=== PATIENT | female | born 2000 | race Caucasian/White ===

== ENCOUNTER 2019-12-20 12:47 | Observation (INO) ==
[2019-12-20] MEDS ORDERED: ONDANSETRON INJ 2 MG/ML 2 ML VIAL IV STA (13:11)
[2019-12-20] MEDS ORDERED: SODIUM CHLORIDE 0.9% 1000ML 1,000 ML IV ONE (13:11)
--- NOTE | 2019-12-20 14:00 | Emergency Department Note ---
History of Present Illness General Chief Complaint: Abdominal Pain Stated Complaint: STOMACH PAIN, NAUSEA Source: patient Mode of arrival: ambulatory Limitations: no limitations History of Present Illness Provider Complaint: abdominal pain Onset (ago): 4 hour(s) Pain Consistency: constant Location: epigastric Radiation: suprapubic Migration to: no migration Severity: moderate Maximum Pain Intensity: 5 Current Pain Intensity: 5 Quality: + aching and + sharp Relieved By: + nothing Exacerbated By: + movement Associated Symptoms: + nausea, + chills and + anorexia; no vomiting, no diarrhea, no fever, no constipation, no dysuria, no hematochezia, no headache and no chest pain Treatments prior to arrival: none This 19 year old female patient presents to the ED today, ambulatory, complaining of epigastric pain and nausea which began approximately 4 hours prior to arrival. The patient states she has not vomited, and was able to eat breakfast this morning, but does report some decreased appetite. Last menstrual period was 2 and half weeks ago. She states the pain does seem to be radiating downward from the epigastrium to the lower abdomen. He denies any constipation, diarrhea, chest pain, dyspnea, or recent illness. She denies any fever. Patient has taken no medications for her symptoms. She denies history of similar symptoms in the past, but spoke with her brother who recently had appendicitis who states that he has presented in the same manner. Patient denies any flank pain. She denies any hematuria, dysuria, urinary frequency, urinary hesitancy. She denies any abnormal vaginal discharge or bleeding. She denies any pain with intercourse. Related Data Date of Last Menstrual Period: 12/03/19 Home Medications Home Medications Medication Instructions Recorded Confirmed Type drospirenone-ethinyl estradiol 1 tab PO PM 12/20/19 12/20/19 History [Brenda (27)] Allergies Allergy/AdvReac Type Severity Reaction Status Date / Time No Known Allergies Allergy Unverified 12/20/19 14:59 Past Med/Surg History Medical History No pertinent past medical history Surgical History H/O wisdom tooth extraction Social History Feels Safe at Home: Yes Smoking Status: Never smoker Review of Systems A total of 10 systems reviewed and were otherwise negative Physical Exam Vital Signs: Vital Signs - 24 hr 12/20/19 12:50 12/20/19 13:51 12/20/19 14:00 Temperature 36.7 C Temperature Source Oral Pulse Rate 95 H 85 Pulse Rate [Apical ] Pulse Rate [Right Finger] 82 Pulse Rate from Sp O2 Sensor 86 Pulse Rhythm [Apic al] Respiratory Rate 20 18 21 Respiratory Effort / Characteristics Non-Labored Sponta neous Respiratory Depth Normal Respiratory Patter n Regular Blood Pressure 148/87 H 126/79 Blood Pressure [Le ft Arm] 127/77 Blood Pressure Karon n 107 97 Blood Pressure Karon n [Left Arm] 93 Blood Pressure Pos ition [Left Arm] Pulse Oximetry 99 100 100 Oxygen Delivery Me thod Room Air Room Air Oxygen Flow Rate Sepsis Recent Feve r Within 48 Hours No Sepsis Action Take n by Nursing No Action Required 12/20/19 14:05 12/20/19 14:30 12/20/19 14:31 Temperature Temperature Source Pulse Rate 83 75 73 Pulse Rate [Apical ] Pulse Rate [Right Finger] Pulse Rate from Sp O2 Sensor 84 76 75 Pulse Rhythm [Apic al] Respiratory Rate 20 20 15 Respiratory Effort / Characteristics Respiratory Depth Respiratory Patter n Blood Pressure 140/64 Blood Pressure [Le ft Arm] Blood Pressure Karon n 79 Blood Pressure Karon n [Left Arm] Blood Pressure Pos ition [Left Arm] Pulse Oximetry 100 100 100 Oxygen Delivery Me thod Oxygen Flow Rate Sepsis Recent Feve r Within 48 Hours Sepsis Action Take n by Nursing 12/20/19 15:01 12/20/19 15:03 12/20/19 15:30 Temperature Temperature Source Pulse Rate 92 H 78 Pulse Rate [Apical ] Pulse Rate [Right Finger] Pulse Rate from Sp O2 Sensor 94 H 75 Pulse Rhythm [Apic al] Respiratory Rate 17 18 Respiratory Effort / Characteristics Respiratory Depth Respiratory Patter n Blood Pressure 117/72 120/80 116/59 L Blood Pressure [Le ft Arm] Blood Pressure Karon n 85 95 75 Blood Pressure Karon n [Left Arm] Blood Pressure Pos ition [Left Arm] Pulse Oximetry 100 100 Oxygen Delivery Me thod Oxygen Flow Rate Sepsis Recent Feve r Within 48 Hours Sepsis Action Take n by Nursing 12/20/19 15:31 12/20/19 15:45 12/20/19 16:00 Temperature Temperature Source Pulse Rate 80 77 85 Pulse Rate [Apical ] Pulse Rate [Right Finger] Pulse Rate from Sp O2 Sensor 84 79 85 Pulse Rhythm [Apic al] Respiratory Rate 18 19 22 Respiratory Effort / Characteristics Respiratory Depth Respiratory Patter n Blood Pressure 107/73 115/78 Blood Pressure [Le ft Arm] Blood Pressure Karon n 77 105 Blood Pressure Karon n [Left Arm] Blood Pressure Pos ition [Left Arm] Pulse Oximetry 100 100 100 Oxygen Delivery Me thod Oxygen Flow Rate Sepsis Recent Feve r Within 48 Hours Sepsis Action Take n by Nursing 12/20/19 16:01 12/20/19 17:26 12/20/19 17:27 Temperature Temperature Source Pulse Rate 80 Pulse Rate [Apical ] Pulse Rate [Right Finger] Pulse Rate from Sp O2 Sensor 81 Pulse Rhythm [Apic al] Respiratory Rate 25 H 16 Respiratory Effort / Characteristics Respiratory Depth Respiratory Patter n Blood Pressure Blood Pressure [Le ft Arm] 115/70 Blood Pressure Karon n Blood Pressure Karon n [Left Arm] 85 Blood Pressure Pos ition [Left Arm] Pulse Oximetry 100 100 Oxygen Delivery Me thod Nasal Cannula Oxygen Flow Rate Sepsis Recent Feve r Within 48 Hours Sepsis Action Take n by Nursing 12/20/19 18:52 12/20/19 19:00 Temperature 36.8 C Temperature Source Temporal Artery Sc an Pulse Rate Pulse Rate [Apical ] 66 63 Pulse Rate [Right Finger] Pulse Rate from Sp O2 Sensor Pulse Rhythm [Apic al] Regular Regular Respiratory Rate 15 21 Respiratory Effort / Characteristics Non-Labored Sponta neous Non-Labored Sponta neous Respiratory Depth Normal Normal Respiratory Patter n Regular Regular Blood Pressure Blood Pressure [Le ft Arm] 108/69 116/71 Blood Pressure Karon n Blood Pressure Karon n [Left Arm] 82 86 Blood Pressure Pos ition [Left Arm] Semi-fowlers Semi-fowlers Pulse Oximetry 100 100 Oxygen Delivery Me thod Oxymask Oxymask Oxygen Flow Rate 10 10 Sepsis Recent Feve r Within 48 Hours Sepsis Action Take n by Nursing Physical Exam: VITALS: Vitals are noted on the nurse's note and reviewed by myself. Vital signs stable. GENERAL: This is a 19-year-old white female, in no acute distress, nondiaphoretic, well-developed well-nourished. SKIN: The skin was without rashes, erythema, edema, or bruising. There is no tenting of the skin. Capillary refill less than 2 seconds. HEAD: Normocephalic atraumatic. EARS: External auditory canals clear, tympanic membranes pearly hair without erythema or effusion bilaterally. EYES: Pupils equal round and reactive to light and accommodation. Conjunctivae without injection, sclerae without icterus. Extraocular movements intact. NOSE: Patent, turbinates without inflammation or discharge. No sinus tenderness. MOUTH: Mucous membranes moist. Tonsils are not enlarged. Pharynx without erythema or exudate. Uvula midline. Airway patent. Tongue does not deviate. NECK: Supple without nuchal rigidity. No lymphadenopathy. HEART: Regular rate and rhythm without murmurs gallops or rubs. LUNGS: Clear to auscultation bilaterally without wheezes, rales or rhonchi. No retractions or accessory muscle use. ABDOMEN: Positive bowel sounds x 4. Normal tympanic percussion. Epigastric and suprapubic tenderness palpation. There is tenderness over McBurney's point. Abdomen is otherwise soft, without masses or organomegaly. Guarding with palpation of the lower abdomen. Positive rebound tenderness. MUSCULOSKELETAL: No muscle atrophy, erythema, or edema noted. Full range of motion without joint tenderness in all extremities. No tenderness to palpation. Normal gait. Strength 5/5 throughout. NEURO: Patient was alert and oriented to person place and time. No focal neurological deficits. Course Course The patient was seen and evaluated as above. IV access obtained, labs drawn. Patient medicated with IV fluids and Zofran. Imaging performed and reviewed by myself and radiologist as above. Labs reviewed by myself. I discussed the findings with the patient at bedside. She was offered analgesics and declined. I discussed the case with the general surgeon on-call, Dr. Lewis. She did agree to see and evaluate the patient. Administered Medications Fentanyl Citrate (Fentanyl Citrate) 25 mcg IV Q5M PRN PRN Reason: PACU Use Only-Pain Stop: 12/20/19 22:34 Last Admin: 12/20/19 19:25 Dose: 25 mcg Documented by: [id number] Ioversol (Optiray 320 100ml) 92 ml IV ONCE PRN PRN Reason: Interaction Checking Stop: 12/24/19 15:42 Last Admin: 12/20/19 15:43 Dose: 92 ml Documented by: [id number] Ondansetron HCl (Zofran) 4 mg IV ONCE PRN PRN Reason: PACU Use Only-Nausea/Vomiting Stop: 12/20/19 22:34 Last Admin: 12/20/19 19:26 Dose: 4 mg Documented by: [id number] Discontinued Medications Bupivacaine HCl (Marcaine 0.5% Mpf) Confirm Administered Dose 30 ml .ROUTE .STK- MED ONE Stop: 12/20/19 17:05 Last Admin: 12/20/19 18:27 Dose: 30 ml Documented by: [id number] Sodium Chloride (Nss 1000ml) 1,000 mls @ 999 mls/hr IV .Q1H1M ONE Stop: 12/20/19 14:11 Last Infusion: 12/20/19 15:22 Dose: 0 mls/hr Documented by: [id number] Admin: 12/20/19 14:07 Dose: 999 mls/hr Documented by: [id number] Cefoxitin Sodium (Mefoxin) 2,000 mg in 60 mls @ 100 mls/hr IV NOW STA Stop: 12/20/19 18:12 Last Admin: 12/20/19 18:10 Dose: 100 mls/hr Documented by: [id number] Ondansetron HCl (Zofran) 4 mg IV NOW STA Stop: 12/20/19 13:12 Last Admin: 12/20/19 14:08 Dose: 4 mg Documented by: [id number] Medical Decision Making Differential Diagnosis + peptic ulcer disease, + biliary pathology, + UTI, + obstruction, + mesenteric ischemia, + aortic pathology, + infections, + inflammatory bowel disease, + renal colic, + ectopic (female), + ovarian torsion (female), + tubo- ovarian abscesses (female), + pelvic inflammatory disease (female), + abdominal pain, + appendicitis, + calculus of kidney, + constipation, + diverticulitis, + endometriosis, + gastroenteritis, + pancreatitis and + small bowel obstruction Home Medications Current Medication List: was personally reviewed by me Laboratory Data Attestation: I reviewed the patient's lab results. No leukocytosis, anemia, thrombocytopenia. Renal, hepatic function, and electrolytes without significant abnormality. Coags normal. Lipase 106. Urinalysis negative for blood or evidence of infection. Urine test negative. Result diagrams: 12/20/19 13:48 12/20/19 13:48 Lab Results 02/12/0812/20/19 12/20/19 Range/Units 13:48 13:48 13:48 WBC 10.50 (4.8-10.8) K/uL RBC 4.30 (4.2-5.4) M/uL Hgb 11.5 L (12.0-16.0) g/dL Hct 35.4 L (37-47) % MCV 82.3 (80-100) fL MCH 26.7 (25-34) pg MCHC 32.5 (32-36) g/dL RDW Std Deviation 42.3 (36.4-46.3) fL RDW Coeff of Vaughn 14.1 (11.5-14.5) % Plt Count 295 (130-400) K/uL MPV 10.6 H (7.4-10.4) fL Immature Gran % (Auto) 0.1 % Neut % (Auto) 78.4 % Lymph % (Auto) 15.8 % [place] % (Auto) 5.0 % Eos % (Auto) 0.5 % Baso % (Auto) 0.2 % Immature Gran # (Auto) 0.01 (0.00-0.02) K/uL Neut # (Auto) 8.23 H (1.4-6.5) K/uL Lymph # (Auto) 1.66 (1.2-3.4) K/uL [place] # (Auto) 0.53 (0.11-0.59) K/uL Eos # (Auto) 0.05 (0-0.5) K/uL Baso # (Auto) 0.02 (0-0.2) K/uL PT 10.7 (9.0-12.0) Seconds INR 1.0 (0.9-1.1) APTT 25.1 (21.0-31.0) Seconds PTT Ratio 0.9 Sodium 139 (136-145) mmol/L Potassium 3.6 (3.5-5.1) mmol/L Chloride 109 H (98-107) mmol/L Carbon Dioxide 26 (21-32) mmol/L Anion Gap 4.0 (3-11) BUN 7 (7-18) mg/dl Creatinine 0.87 (0.6-1.2) mg/dl Est Cr Clr Drug Dosing 96.6 ml/min Est GFR ( Amer) 111.1 Est GFR (Non-Af Amer) 95.9 BUN/Creatinine Ratio 7.9 L (10-20) Glucose 125 H (70-99) mg/dl Calcium 9.5 (8.5-10.1) mg/dl Total Bilirubin 0.3 (0.2-1) mg/dl AST 34 (15-37) U/L ALT 20 (12-78) U/L Alkaline Phosphatase 59 (45-117) U/L Total Protein 7.8 (6.4-8.2) gm/dl Albumin 3.7 (3.4-5.0) gm/dl Globulin 4.1 H (2.5-4.0) gm/dl Albumin/Globulin Ratio 0.9 (0.9-2) Lipase 106 (73-393) U/L Urine Color Urine Appearance (Clear) Urine pH (4.5-7.5) Ur Specific [place] (1.000-1.030) Urine Protein (Negative) Urine Glucose (UA) (Negative) Urine Ketones (Negative) Urine Blood (Negative) Urine Nitrite (Negative) Urine Bilirubin (Negative) Urine Urobilinogen (Negative) Ur Leukocyte Esterase (Negative) Urine WBC (Auto) (0-5) /hpf Urine RBC (Auto) (0-4) /hpf U Hyaline Cast (Auto) (0-5) /lpf U Epithel Cells (Auto) (0-5) /lpf Urine Bacteria (Auto) (Negative) POC Ur Test (NEG) 12/20/19 12/20/19 Range/Units 13:49 13:49 WBC (4.8-10.8) K/uL RBC (4.2-5.4) M/uL Hgb (12.0-16.0) g/dL Hct (37-47) % MCV (80-100) fL MCH (25-34) pg MCHC (32-36) g/dL RDW Std Deviation (36.4-46.3) fL RDW Coeff of Vaughn (11.5-14.5) % Plt Count (130-400) K/uL MPV (7.4-10.4) fL Immature Gran % (Auto) % Neut % (Auto) % Lymph % (Auto) % [place] % (Auto) % Eos % (Auto) % Baso % (Auto) % Immature Gran # (Auto) (0.00-0.02) K/uL Neut # (Auto) (1.4-6.5) K/uL Lymph # (Auto) (1.2-3.4) K/uL [place] # (Auto) (0.11-0.59) K/uL Eos # (Auto) (0-0.5) K/uL Baso # (Auto) (0-0.2) K/uL PT (9.0-12.0) Seconds INR (0.9-1.1) APTT (21.0-31.0) Seconds PTT Ratio Sodium (136-145) mmol/L Potassium (3.5-5.1) mmol/L Chloride (98-107) mmol/L Carbon Dioxide (21-32) mmol/L Anion Gap (3-11) BUN (7-18) mg/dl Creatinine (0.6-1.2) mg/dl Est Cr Clr Drug Dosing ml/min Est GFR ( Amer) Est GFR (Non-Af Amer) BUN/Creatinine Ratio (10-20) Glucose (70-99) mg/dl Calcium (8.5-10.1) mg/dl Total Bilirubin (0.2-1) mg/dl AST (15-37) U/L ALT (12-78) U/L Alkaline Phosphatase (45-117) U/L Total Protein (6.4-8.2) gm/dl Albumin (3.4-5.0) gm/dl Globulin (2.5-4.0) gm/dl Albumin/Globulin Ratio (0.9-2) Lipase (73-393) U/L Urine Color Yellow Urine Appearance Cloudy A (Clear) Urine pH 6.0 (4.5-7.5) Ur Specific [place] 1.016 (1.000-1.030) Urine Protein Negative (Negative) Urine Glucose (UA) Negative (Negative) Urine Ketones Negative (Negative) Urine Blood Negative (Negative) Urine Nitrite Negative (Negative) Urine Bilirubin Negative (Negative) Urine Urobilinogen Negative (Negative) Ur Leukocyte Esterase Negative (Negative) Urine WBC (Auto) 1-5 (0-5) /hpf Urine RBC (Auto) 0-4 (0-4) /hpf U Hyaline Cast (Auto) 1-5 (0-5) /lpf U Epithel Cells (Auto) 20-30 H (0-5) /lpf Urine Bacteria (Auto) Negative (Negative) POC Ur Test NEG (NEG) Imaging Data Radiologist's Impression: XR chest 1V portable HISTORY: epigastric pain COMPARISON: None. FINDINGS: The lungs are clear. Cardiac silhouette is normal in size. No pleural effusions. No pneumothorax. IMPRESSION: No acute process. ACT 112: Negative or not required by law. Electronically signed by: Bentley Moyer M.D. 12/20/2019 2:[address] SCAN OF THE ABDOMEN AND PELVIS WITH IV CONTRAST CLINICAL HISTORY: Right lower quadrant abdominal pain. COMPARISON STUDY: No priors. TECHNIQUE: Following the IV administration of 92 cc of Optiray 320, CT scan of the abdomen and pelvis is performed from the lung bases to the proximal femora. Images are reviewed in the axial, sagittal, and coronal planes. IV contrast was administered without complication. Oral contrast was utilized. A dose lowering technique was utilized adhering to the principles of ALARA. CT DOSE: 307.31 mGy.cm FINDINGS: Lung bases: The heart is normal in size and without pericardial effusion. The lung bases are clear. Liver: The contrast-enhanced liver is normal in size, contour, and attenuation. There is no intrahepatic biliary ductal dilatation. The hepatic veins and portal veins are patent. Gallbladder: Unremarkable. Spleen: Normal in size and attenuation. Pancreas: Unremarkable. Adrenal glands: Unremarkable. Kidneys: The contrast enhanced kidneys are normal in size and without hydronephrosis. The kidneys enhance symmetrically. Abdominal vasculature: The abdominal aorta is normal in course and caliber. Bowel: There is no bowel obstruction. Enteric contrast reaches the distal small bowel. The appendix is distended and fluid-filled, measuring 1.7 cm in transverse diameter. This is best seen on image #276. Large calcified appendicoliths are seen on image #255 and #271. The calyceal wall is thickened and hyperemic and there is periappendiceal inflammatory change. The appearance is consistent with acute appendicitis. No organized fluid collection is seen to suggest abscess. Peritoneum: There is no intraperitoneal free air or abdominal ascites. There is a fat-containing umbilical hernia. Lymphadenopathy: None. Pelvic viscera: The bladder, uterus, and adnexa are normal as visualized noting bilateral ovarian follicles. There is a moderate volume of free fluid in the cul-de-sac. Skeletal structures: No lytic or blastic lesions are seen. IMPRESSION: 1. Findings are consistent with acute appendicitis. There is no evidence of abscess or perforation. 2. A moderate volume of free fluid in the cul-de-sac is nonspecific and likely within physiologic limits. ACT 112: Negative or not required by law. Electronically signed by: Jadiel Jamil M.D. 12/20/2019 3:52 PM Blood Pressure Blood Pressure Findings: Normal blood pressure MDM Narrative This 19-year-old female patient presents the emergency department today for evaluation of abdominal pain. Pain began in the epigastrium and radiates down towards the lower abdomen. She has been afebrile, but does admit to anorexia. There is no leukocytosis and labs are benign. CT imaging consistent with acute appendicitis without abscess or perforation. I did discuss the case with the general surgeon on-call. She did agree to see and evaluate the patient. Please see surgery dictation regarding ongoing management care of this patient. The chart was completed utilizing [employer] Speech voice recognition software. Grammatical errors, random word insertions, pronoun errors, and incomplete sentences are an occasional consequence of this system due to software limitations, ambient noise, and hardware issues. Any formal questions or concerns about the content, text, or information contained within the body of this dictation should be directly addressed to the provider for clarification. Impression & Plan Acute appendicitis Discharge Plan Visit Data *Final* Discharge Date/Time: 12/20/19 17:27 Chief Complaint: Abdominal Pain Stated Complaint: STOMACH PAIN, NAUSEA ED Provider: Kevin Santiago ED Midlevel Provider: Danna Carlos Discharge Problem: Acute appendicitis Patient Disposition: Admitted As Inpatient Condition: Good Discharge Instructions Interventions: ED Discharge Assessment Last Done: 12/20/19 17:27
[2019-12-20 14:13] LABS: Basophils # (auto) 0.02 K/uL (0-0.2); Basophils % (auto) 0.2 %; Eosinophils # (auto) 0.05 K/uL (0-0.5); Eosinophils % (auto) 0.5 %; Hematocrit (blood only) 35.4 % (37-47); Hemoglobin 11.5 g/dL (12.0-16.0); Immature Granulocytes # (auto) 0.01 K/uL (0.00-0.02); Immature Granulocytes % (auto) 0.1 %; Lymphocytes # (auto) 1.66 K/uL (1.2-3.4); Lymphocytes % (auto) 15.8 %; Mean Corpuscular Hemoglobin 26.7 pg (25-34); Mean Corpuscular Hgb Conc 32.5 g/dL (32-36); Mean Corpuscular Volume 82.3 fL (80-100); Mean Platelet Volume 10.6 fL (7.4-10.4); Monocytes # (auto) 0.53 K/uL (0.11-0.59); Neutrophils # (auto) 8.23 K/uL (1.4-6.5); Neutrophils % (auto) 78.4 %; Platelet Count 295 K/uL (130-400); RDW Coefficient of Variation 14.1 % (11.5-14.5); RDW Standard Deviation 42.3 fL (36.4-46.3)
[2019-12-20 14:18] LABS: Appearance Urine Cloudy (Clear); Bacteria Urine Automated Negative (Negative); Bilirubin Urine Negative (Negative); Blood Urine Negative (Negative); Color Urine Yellow; Epithelial Cell Urine Auto 20-30 /lpf (0-5); Glucose Urine UA Negative (Negative); Ketones Urine Negative (Negative); Leukocyte Esterase Urine Negative (Negative); Nitrite Urine Negative (Negative); Protein Urine Negative (Negative); RBC Urine Automated 0-4 /hpf (0-4); Specific Gravity Urine 1.016 (1.000-1.030); Urobilinogen Urine Negative (Negative)
[2019-12-20 14:25] LABS: Partial Thromboplastin Ratio 0.9; Partial Thromboplastin Time 25.1 Seconds (21.0-31.0); Prothrombin Time 10.7 Seconds (9.0-12.0)
[2019-12-20 14:34] LABS: Albumin Level 3.7 gm/dl (3.4-5.0); BUN Creatinine Ratio 7.9 (10-20); Calcium 9.5 mg/dl (8.5-10.1); Creatinine Clr Calc Pharmacy 96.6 ml/min; Est GFR (African American) 111.1; Est GFR (Non-African American) 95.9; Potassium 3.6 mmol/L (3.5-5.1)
--- NOTE | 2019-12-20 14:34 | XRay Report ---
XR chest 1V portable HISTORY: epigastric pain COMPARISON: None. FINDINGS: The lungs are clear. Cardiac silhouette is normal in size. No pleural effusions. No pneumot horax. IMPRESSION: No acute process. ACT 112: Negative or not required by law. Electronically signed by: Bentley Moyer M.D. 12/20/2019 2:32 PM
[2019-12-20 14:37] LABS: Albumin Globulin Ratio 0.9 (0.9-2); Bilirubin,Total 0.3 mg/dl (0.2-1); Globulin 4.1 gm/dl (2.5-4.0); Total Protein 7.8 gm/dl (6.4-8.2)
[2019-12-20] MEDS ORDERED: IOVERSOL 100ml IV PRN (15:43)
--- NOTE | 2019-12-20 15:54 | CT Scan Report ---
CT SCAN OF THE ABDOMEN AND PELVIS WITH IV CONTRAST CLINICAL HISTORY: Right lower quadrant abdominal pain. COMPARISON STUDY: No priors. TECHNIQUE: Following the IV administration of 92 cc of Optiray 320, CT scan of the abdomen and pelvi s is performed from the lung bases to the proximal femora. Images are reviewed in the axial, sagittal , and coronal planes. IV contrast was administered without complication. Oral contrast was utilized. A dose lowering technique was utilized adhering to the principles of ALARA. CT DOSE: 307.31 mGy.cm FINDINGS: Lung bases: The heart is normal in size and without pericardial effusion. The lung bases are clear. Liver: The contrast-enhanced liver is normal in size, contour, and attenuation. There is no intrahepa tic biliary ductal dilatation. The hepatic veins and portal veins are patent. Gallbladder: Unremarkable. Spleen: Normal in size and attenuation. Pancreas: Unremarkable. Adrenal glands: Unremarkable. Kidneys: The contrast enhanced kidneys are normal in size and without hydronephrosis. The kidneys enh ance symmetrically. Abdominal vasculature: The abdominal aorta is normal in course and caliber. Bowel: There is no bowel obstruction. Enteric contrast reaches the distal small bowel. The appendix i s distended and fluid-filled, measuring 1.7 cm in transverse diameter. This is best seen on image #2 76. Large calcified appendicoliths are seen on image #255 and #271. The calyceal wall is thickened an d hyperemic and there is periappendiceal inflammatory change. The appearance is consistent with acute appendicitis. No organized fluid collection is seen to suggest abscess. Peritoneum: There is no intraperitoneal free air or abdominal ascites. There is a fat-containing umbi lical hernia. Lymphadenopathy: None. Pelvic viscera: The bladder, uterus, and adnexa are normal as visualized noting bilateral ovarian fol licles. There is a moderate volume of free fluid in the cul-de-sac. Skeletal structures: No lytic or blastic lesions are seen. IMPRESSION: 1. Findings are consistent with acute appendicitis. There is no evidence of abscess or perforation. 2. A moderate volume of free fluid in the cul-de-sac is nonspecific and likely within physiologic angela its. ACT 112: Negative or not required by law. Electronically signed by: Jadiel Jamil M.D. 12/20/2019 3:52 PM
[2019-12-20] MEDS ORDERED: fentaNYL citrate 100 MCG/2 ML VIAL ONE ×2 (16:41→19:20)
[2019-12-20] MEDS ORDERED: ONDANSETRON INJ 2 MG/ML 2 ML VIAL ONE ×2 (16:41→19:25)
[2019-12-20] MEDS ORDERED: LIDOCAINE HCL 2% 2 ML VIAL/AMP(20MG/ML) INFIL ONE (16:41)
[2019-12-20] MEDS ORDERED: MIDAZOLAM HCL 1 MG/ML 2ML VIAL ONE (16:41)
[2019-12-20] MEDS ORDERED: NEOSTIGMINE METHYLSULFATE 5 MG/5 ML SYR ONE (16:41)
[2019-12-20] MEDS ORDERED: GLYCOPYRROLATE 0.2 MG/ML VIAL ONE (16:41)
[2019-12-20] MEDS ORDERED: PHENYLEPHRINE HCL 10 MG/ML VIAL ONE (16:41)
[2019-12-20] MEDS ORDERED: SUCCINYLCHOLINE CHLORIDE 20 MG/ML 10 ML VIAL ONE (16:41)
[2019-12-20] MEDS ORDERED: ePHEDrine sulfate 50 MG/ML AMP ONE (16:41)
[2019-12-20] MEDS ORDERED: PROPOFOL IV EMULSION 10 MG/ML 20 ML VIAL IV ONE (16:41)
[2019-12-20] MEDS ORDERED: DEXAMETHASONE SOD INJ 4 MG/ML VIAL ONE (16:41)
[2019-12-20] MEDS ORDERED: NALOXONE HCL 0.4 MG/1 ML VIAL/CARP ONE (16:58)
[2019-12-20] MEDS ORDERED: BUPIVACAINE 0.5 % 5 MG/1 ML MPF 30ML VIAL ONE (17:04)
--- NOTE | 2019-12-20 17:21 | History & Physical Report ---
Date of Service December 20, 2019 Assessment & Plan (1) Acute appendicitis: 19 yr old with acute appendicitis. Discussed laparoscopic appendectomy with risks of bleeding, infection, conversion to open, postop ileus/ abscess, negative appy. Consent signed. expected 2 wk recovery period reviewed. For OR tonight. 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 Started in the epigastrium and radiates downward, moderate severity, worse with movement, no radiation, no similar episodes in the past, associated with nausea and anorexia. Crampy pain like gas. No fevers. Brother presented similarly with his recent appendicitis. Allergies Allergy/AdvReac Type Severity Reaction Status Date / Time No Known Allergies Allergy Unverified 12/20/19 14:59 Home Medications Home Medications Medication Instructions Recorded Confirmed Type drospirenone-ethinyl estradiol 1 tab PO PM 12/20/19 12/20/19 History [Brenda (28)] Past Med/Surg History Medical History No pertinent past medical history Social History Feels Safe at Home: Yes Smoking Status: Never smoker Review of Systems Review of Systems: All systems reviewed & are unremarkable except as noted in HPI & below Physical Exam Constitutional: WD/WN, vitals as above Eyes: PERRL, conjunctivae normal, anicteric sclerae ENMT: Ears: no hearing impairment Neck: normal visual inspection Respiratory: normal respiratory effort, lungs clear to auscultation Cardiovascular: RRR, no murmur, no edema Gastrointestinal (Abdomen): Inspection/Auscultation: abdomen normal to inspection, + abdomen distended (mild) and normal bowel sounds Percussion/Palpation: + abdomen tender (RLQ ) and abdomen soft; no guarding Musculoskeletal: no cyanosis or clubbing, extremities motor strength 5/5 Neurologic: moves all extremities; no focal motor deficits Psychiatric: A+Ox3, euthymic affect Results & Data Vital Signs (Past 12 Hours) Vital Signs Temp Pulse Pulse Resp BP BP Pulse Ox 12/20/19 16:01 80 25 H 100 02/01/20 16:00 85 22 115/78 100 02/01/20 15:45 77 19 107/73 12/20/19 15:31 80 18 100 12/20/19 15:30 78 18 116/59 L 12/20/19 15:03 92 H 17 120/80 12/20/19 15:01 117/72 12/20/19 14:31 73 15 100 12/20/19 14:30 75 20 140/64 12/20/19 14:05 83 20 12/20/19 14:00 85 21 126/79 12/20/19 13:51 82 18 127/77 12/20/19 12:50 36.7 C 95 H 20 148/87 H 99 Laboratory Results Abnormal lab results 12/20/19 12/20/19 12/20/19 Range/Units 13:48 13:48 13:49 Hgb 11.5 L (12.0-16.0) g/dL Hct 35.4 L (37-47) % MPV 10.6 H (7.4-10.4) fL Neut # (Auto) 8.23 H (1.4-6.5) K/uL Chloride 109 H (98-107) mmol/L BUN/Creatinine Ratio 7.9 L (10-20) Glucose 125 H (70-99) mg/dl Globulin 4.1 H (2.5-4.0) gm/dl Urine Appearance Cloudy A (Clear) U Epithel Cells (Auto) 20-30 H (0-5) /lpf Diagnostic Findings CT scan abd/ pelvis FINDINGS: Lung bases: The heart is normal in size and without pericardial effusion. The lung bases are clear. Liver: The contrast-enhanced liver is normal in size, contour, and attenuation. There is no intrahepatic biliary ductal dilatation. The hepatic veins and portal veins are patent. Gallbladder: Unremarkable. Spleen: Normal in size and attenuation. Pancreas: Unremarkable. Adrenal glands: Unremarkable. Kidneys: The contrast enhanced kidneys are normal in size and without hydronephrosis. The kidneys enhance symmetrically. Abdominal vasculature: The abdominal aorta is normal in course and caliber. Bowel: There is no bowel obstruction. Enteric contrast reaches the distal small bowel. The appendix is distended and fluid-filled, measuring 1.7 cm in transverse diameter. This is best seen on image #276. Large calcified appendicoliths are seen on image #255 and #271. The calyceal wall is thickened and hyperemic and there is periappendiceal inflammatory change. The appearance is consistent with acute appendicitis. No organized fluid collection is seen to suggest abscess. Peritoneum: There is no intraperitoneal free air or abdominal ascites. There is a fat-containing umbilical hernia. Lymphadenopathy: None. Pelvic viscera: The bladder, uterus, and adnexa are normal as visualized noting bilateral ovarian follicles. There is a moderate volume of free fluid in the cul-de-sac. Skeletal structures: No lytic or blastic lesions are seen. IMPRESSION: 1. Findings are consistent with acute appendicitis. There is no evidence of abscess or perforation. 2. A moderate volume of free fluid in the cul-de-sac is nonspecific and likely within physiologic limits.
[2019-12-20] MEDS ORDERED: MEPERIDINE HCL 25 MG/ML CARP IV PRN (17:34)
[2019-12-20] MEDS ORDERED: PROMETHAZINE HCL 12.5 MG in SODIUM CHLORIDE 0.9% 50 ML IV PRN (17:34)
[2019-12-20] MEDS ORDERED: ePHEDrine sulfate 50 MG/ML AMP IV PRN (17:34)
[2019-12-20] MEDS ORDERED: ONDANSETRON INJ 2 MG/ML 2 ML VIAL IV PRN ×2 (17:34→20:15)
[2019-12-20] MEDS ORDERED: ATROPINE SULFATE 0.1 MG/ML 10ML SYR IV PRN (17:34)
[2019-12-20] MEDS ORDERED: fentaNYL citrate 100 MCG/2 ML VIAL IV PRN (17:34)
--- NOTE | 2019-12-20 17:34 | Anesthesiology Consultation ---
Date of Service December 20, 2019 Assessment & Plan Chart Review Chart Review: Acceptable Risk for Surgery Consults Requested none ASA ASA1E Proposed Anesthesia Anesthesia Type: General (RSI) Risk / Benefits Reviewed With: PT / POA / Parent / Guardian, Accepts Plan and Informed Consent Obtained History Surgery Operation Date: 12/20/19 17:30 Proposed Procedures p Laparoscopic Appendectomy - Destinee Lewis MD Height/Weight Height: 5 ft 6 in Weight: 66 kg Allergies Allergy/AdvReac Type Severity Reaction Status Date / Time No Known Allergies Allergy Unverified 12/20/19 14:59 Medications Home Medications Medication Instructions Recorded Confirmed Last Taken drospirenone-ethinyl estradiol 1 tab PO PM 12/20/19 12/20/19 12/19/19 [Brenda (28)] Active Medications Generic Name Dose Route Start Last Admin Trade Name Freq PRN Reason Stop Dose Admin Ioversol 92 ml 12/20/19 15:43 12/20/19 15:43 Optiray 320 100ml IV 12/24/19 15:42 92 ml ONCE PRN Administration Interaction Checking NPO Date Last Intake of Fluids: 12/20/19 Time Last Intake of Fluids: 15:30 Last Intake of Fluids Comment: ct contrast Date Last Intake of Solids: 12/20/19 Time Last Intake of Solids: 11:30 Past Medical History Medical History No pertinent past medical history Exercise / Class Metabolic Activity 1 > 8 Run/Swim/Ski/Tennis Past Surgical History Surgical History (Updated 12/20/19 @ 17:47 by Davina Copeland DO) H/O wisdom tooth extraction Past Anesthesia History No Hx of Anesthesia Complications and No Family Hx of Anesthesia Complications History of PONV No Hx of PONV and No Hx of Motion Sickness Social History Smoking Status: Never smoker Physical Exam Vital Signs Last Vital Signs Temp 36.7 C 12/20/19 12:50 Pulse 80 12/20/19 16:01 Resp 16 12/20/19 17:26 BP 115/70 12/20/19 17:26 Pulse Ox 100 12/20/19 17:26 ENMT Mouth: no TMJ abnormality Thyromental Distance: > or= 3.5 Finger Breadths Mallampati Class: II Neck normal visual inspection and trachea midline; neck extension not limited Respiratory normal respiratory effort Auscultation: lungs clear to auscultation bilaterally Cardiovascular Rate/Rhythm: regular rate and regular rhythm Heart Sounds: no murmur Musculoskeletal Spine: normal cervical ROM Extremities: full ROM of extremities Neurologic moves all extremities Psychiatric Orientation: alert and oriented x 3 Testing Laboratory Results 12/20/19 13:48 12/20/19 13:48 PT 10.7 Seconds (9.0-12.0) 12/20/19 13:48 INR 1.0 (0.9-1.1) 12/20/19 13:48 APTT 25.1 Seconds (21.0-31.0) 12/20/19 13:48 Urine Color Yellow 12/20/19 13:49 Urine Appearance Cloudy (Clear) A 12/20/19 13:49 Urine pH 6.0 (4.5-7.5) 12/20/19 13:49 Ur Specific [place] 1.016 (1.000-1.030) 12/20/19 13:49 Urine Protein Negative (Negative) 12/20/19 13:49 Urine Glucose (UA) Negative (Negative) 12/20/19 13:49 Urine Ketones Negative (Negative) 12/20/19 13:49 Urine Nitrite Negative (Negative) 12/20/19 13:49 Ur Leukocyte Esterase Negative (Negative) 12/20/19 13:49 Urine WBC (Auto) 1-5 /hpf (0-5) 12/20/19 13:49 Urine RBC (Auto) 0-4 /hpf (0-4) 12/20/19 13:49 U Hyaline Cast (Auto) 1-5 /lpf (0-5) 12/20/19 13:49 U Epithel Cells (Auto) 20-30 /lpf (0-5) H 12/20/19 13:49 Urine Bacteria (Auto) Negative (Negative) 12/20/19 13:49 12/20/19 13:49 POC Ur Test NEG Chest X-Ray Date: 12/20/19 Findings: + NAD
[2019-12-20] MEDS ORDERED: cefOXitin 2,000 MG/60 ML BAG IV STA (17:37)
--- NOTE | 2019-12-20 18:38 | Operative Report ---
Post Operative Report Pre & Post Diagnosis Operation Date: 12/20/19 17:30 Pre-Op Diagnosis: Acute appendicitis Post-Op Diagnosis: Acute appendicitis I identified the patient and participated in the time-out.: Yes Procedure Operation Date: 12/20/19 17:30 Actual Procedures p Laparoscopic Appendectomy(Not Applicable) - Destinee Lewis MD Surgeon Destinee Lweis MD Binding Cutter none Estimated Blood Loss 5 Findings Consistent with Post-Op Diagnosis Specimens appendix Description of Procedure see dictated operative report I attest to the content of the Intraoperative Record and any orders documented therein. Any exceptions are noted below.
[2019-12-20] MEDS: LACTATED RINGER'S 1,000 ML IV SCH (20:10)
[2019-12-20] MEDS ORDERED: MoRPHine SULFATE 4 MG/ML 1 ML CARP\\VIAL IV PRN (20:15)
[2019-12-20] MEDS ORDERED: MoRPHine SULFATE 2 MG/ML CARP IV PRN ×2 (20:15)
[2019-12-20] MEDS ORDERED: IBUPROFEN 200 MG TAB PO PRN (20:15)
[2019-12-20] MEDS ORDERED: ACETAMINOPHEN 325 MG TAB PO PRN (20:15)
[2019-12-20] MEDS ORDERED: HYDROCODONE/ACETAMOPHEN 5/325MG TAB PO PRN ×2 (20:15)
[2019-12-20] MEDS ORDERED: KETOROLAC 30 MG/ML VIAL IV PRN ×2 (20:15)
--- NOTE | 2019-12-20 20:48 | Anesthesiology Progress Note ---
Date of Service December 20, 2019 Anesthesia Post Procedure Vital Signs Vital Signs: Temp Pulse Pulse Pulse Resp BP BP 12/20/19 19:50 63 16 105/70 12/20/19 19:40 36.6 C 63 16 110/67 12/20/19 19:30 63 16 108/66 12/20/19 19:20 65 18 111/67 12/20/19 19:10 67 20 114/70 12/20/19 19:00 63 21 116/71 12/20/19 18:52 36.8 C 66 15 108/69 12/20/19 17:26 16 115/70 12/20/19 16:01 80 25 H 12/20/19 16:00 85 22 115/78 12/20/19 15:45 77 19 107/73 12/20/19 15:31 80 18 12/20/19 15:30 78 18 116/59 L 12/20/19 15:03 92 H 17 120/80 12/20/19 15:01 117/72 12/20/19 14:31 73 15 12/20/19 14:30 75 20 140/64 12/20/19 14:05 83 20 12/20/19 14:00 85 21 126/79 12/20/19 13:51 82 18 127/77 12/20/19 12:50 36.7 C 95 H 20 148/87 H Pulse Ox 12/20/19 19:50 100 12/20/19 19:40 100 12/20/19 19:30 100 12/20/19 19:20 100 12/20/19 19:10 100 12/20/19 19:00 100 12/20/19 18:52 100 12/20/19 17:26 100 12/20/19 16:01 100 12/20/19 16:00 100 12/20/19 15:45 100 12/20/19 15:31 100 12/20/19 15:30 100 12/20/19 15:03 100 12/20/19 15:01 12/20/19 14:31 100 12/20/19 14:30 100 12/20/19 14:05 100 12/20/19 14:00 100 12/20/19 13:51 100 12/20/19 12:50 99 Pain Intensity Abdomen: Pain Intensity: 6 Transfer of Care Handoff Completed per policy Notes Mental Status: alert / awake / arousable and participated in evaluation Patient Amnestic to Procedure: Yes Nausea / Vomiting: adequately controlled Pain: adequately controlled Airway Patency, RR, SpO2: stable & adequate BP & HR: stable & adequate Hydration State: stable & adequate Anesthetic Complications: no major complications apparent and Pt Satisfied with anesthetic care
[2019-12-20] MEDS ORDERED: LEVOFLOXACIN/D5W 500 MG/100 ML BAG IV SCH (21:00)
[2019-12-20] MEDS ORDERED: COUGH DROP (SUGAR FREE) LOZ 24 LOZ/1 BOX BUCCAL PRN (22:39)
[2019-12-20] MEDS ORDERED: COUGH DROP (SUGAR FREE) LOZ 24 LOZ/1 BOX BUCCAL ONE (22:40)
--- NOTE | 2019-12-20 23:41 | Operative Report ---
DATE OF OPERATION: 12/20/2019 PREOPERATIVE DIAGNOSIS: Acute appendicitis. POSTOPERATIVE DIAGNOSIS: Acute appendicitis. OPERATIVE PROCEDURE: Laparoscopic appendectomy. SURGEON: Dr. Destinee Lewis. MANAGEMENT TRAINEE MARKETING: None. ANESTHESIA: General endotracheal anesthesia, ASA 1E. ESTIMATED BLOOD LOSS: 5 mL. IV FLUIDS: 1200 mL. COMPLICATIONS: None. SPECIMENS: Appendix. DRAINS: None. OPERATIVE FINDINGS: Markedly dilated and inflamed appendix, no evidence of perforation. INDICATIONS: The patient is a 19-year-old woman who presented with signs and symptoms of acute appendicitis. This was confirmed on CAT scan. She was consented for laparoscopic appendectomy. DESCRIPTION OF PROCEDURE: The patient received Mefoxin preoperatively. After the induction of general endotracheal anesthesia, she had placement of sequential compression devices. She was positioned with her left arm tucked. She had voided just prior to the procedure. Her abdomen was sterilely prepped and draped. She was positioned in Trendelenburg. A supraumbilical incision was made and a Veress needle placed into the peritoneal cavity. This was tested with the saline drop test and pneumoperitoneum was established with initial pressure of 1 mmHg taken up to 15 mmHg. A 12 mm trocar was placed with the camera placed in the trocar. So under direct vision, 2 additional trocars were then placed, in the left lower quadrant 5 mm and in the midline pubic area 5 mm. The appendix was noted to be markedly dilated and protruding into the right lower quadrant. This was followed and the very base of it on the cecum was within normal limits. This area was cleared of attachments and the appendix divided off the cecum with a firing of the PATRICE giordano load stapler. The appendiceal mesentery was taken with a second firing of the PATRICE giordano load stapler. The appendix was placed in an Endobag and removed through the umbilical incision. The abdomen was noted to be hemostatic. A slight amount of irrigation was performed and suctioned out. There was no gross evidence of bleeding. The trocars were removed. A 30 mL of 0.5% Marcaine had been used for local anesthesia throughout the procedure. Pneumoperitoneum had been released. The fascia of the umbilical incision was closed with 0 Vicryl stitches placed anteriorly. The skin of all 3 incisions was closed with running subcuticular 4-0 Vicryl sutures. Steri-Strips sterile dressings were applied. She was awakened from anesthesia and taken to recovery in stable condition. I attest to the content of the Intraoperative Record and any orders documented therein. Any exception s are noted below.
[2019-12-21] MEDS: LACTATED RINGER'S 1,000 ML IV SCH ×2 (02:19→11:35)
--- NOTE | 2019-12-21 08:51 | Surgery Progress Note ---
Date of Service December 21, 2019 Assessment & Plan (1) Acute appendicitis: s/p lap appendectomy. Looks well. Stable for discharge if can tolerate diet. Postop instructions reviewed with pt and her mother (latter via phone). Subjective Feeling well. No nausea. Pain well controlled. Review of Systems Review of Systems: All systems reviewed & are unremarkable except as noted in HPI & below Physical Exam Constitutional: WD/WN, vitals as above Respiratory: normal respiratory effort, lungs clear to auscultation Cardiovascular: RRR, no murmur, no edema Gastrointestinal (Abdomen): Inspection/Auscultation: + abdomen distended (mild) and normal bowel sounds Percussion/Palpation: abdomen soft; abdomen nontender dressings with dried blood, otherwise intact Neurologic: moves all extremities; no focal motor deficits Results & Data Vital Signs (Past 12 Hours) Vital Signs Temp Pulse Pulse Resp BP Pulse Ox 12/21/19 07:52 36.7 C 63 16 109/70 99 12/21/19 03:01 37.0 C 82 16 120/70 97 12/20/19 23:10 37.6 C H 91 H 16 104/68 96 12/20/19 22:23 36.8 C 98 H 18 109/73 100 12/20/19 21:14 36.6 C 67 18 107/72 99 (1) Acute appendicitis Acute appendicitis type: with generalized peritonitis Appendicitis abscess presence: without abscess Appendicitis gangrene presence: without gangrene Appendicitis perforation presence: unspecified whether perforation present Qualified Code(s): K35.20 - Acute appendicitis with generalized peritonitis, without abscess
--- NOTE | 2019-12-21 08:56 | Discharge Summary ---
Date of Service December 21, 2019 Admission HPI Per Admitting Provider 19 yr old [employer] [facility] [employer] [facility] student presents to the ER with abdominal pain of about 1/2 day duration. Started in the epigastrium and radiates downward, moderate severity, worse with movement, no radiation, no similar episodes in the past, associated with nausea and anorexia. Crampy pain like gas. No fevers. Brother presented similarly with his recent appendicitis. Admission Exam (Per Admitting) Constitutional WD/WN, vitals as above Eyes PERRL, conjunctivae normal, anicteric sclerae ENMT Ears: no hearing impairment Neck normal visual inspection Respiratory normal respiratory effort, lungs clear to auscultation Cardiovascular RRR, no murmur, no edema Gastrointestinal (Abdomen) Inspection/Auscultation: abdomen normal to inspection, + abdomen distended (mi ld) and normal bowel sounds Percussion/Palpation: abdomen soft; abdomen nontender and no guarding Musculoskeletal no cyanosis or clubbing, extremities motor strength 5/5 Neurologic moves all extremities; no focal motor deficits Psychiatric A+Ox3, euthymic affect Discharge Data Consultations 12/20/19 16:02 Consult General Surgery Stat Procedures Performed Operation Date: 12/20/19 17:30 Actual Procedures p Laparoscopic Appendectomy(Not Applicable) - Destinee Lewis MD Hospital Course (1) Acute appendicitis: s/p lap appendectomy. Looks well. Stable for discharge if can tolerate diet. Postop instructions reviewed with pt and her mother (latter via phone).
[2019-12-21] MEDS ORDERED: DiphenhydrAMINE HCL 50 MG/ML VIAL ONE (18:17)
== END 2019-12-21 13:40 | disposition home or self-care (01) ==
LOC: ED 12:47 → 3E 17:27 → OR 17:27